=== PATIENT | female | born 1965 | race American Indian/Alaskan Native ===

== ENCOUNTER 2018-04-07 10:13 | Outpatient (CLI) | payer OTHER ==
--- NOTE | 2018-04-07 10:49 | XRay Report ---
AP AND LATERAL LUMBOSACRAL SPINE: History: Disability exam. The vertebral bodies are well mineralized and normal in alignment and vertebral height with well preserved interspace distances. The visualized portions of the posterior elements are normal. IMPRESSION: Normal study.
== END 2018-04-07 10:14 | disposition home or self-care (01) ==
LOC: XRAY 10:13
PROVIDERS: ATTEND Internal Medicine
DX: Z02.71 Encounter for disability determination (principal); E11.9 Type 2 diabetes mellitus without complications; R03.0 Elevated blood-pressure reading, without diagnosis of hypertension
CPT/HCPCS: 72100